=== PATIENT | female | born 1990 | race Caucasian/White ===

== ENCOUNTER 2022-08-31 15:21 | Emergency (ER) | payer SELFPAY ==
[~2022-08-31] VITALS: Ht 175 cm; Wt 121.0 kg
[~2022-08-31 15:21] MED LIST: CEPH500C PO; CLIN300C3 PO; HYDR118S10 PO; NAPR-243 PO; PRD5T PO; RNT150T PO
--- NOTE | 2022-08-31 16:01 | ED General ---
General Chief Complaint: General Problems/Pain Stated Complaint: HANDS CRAMPING Nursing Triage Note: pt has multiple complaints: n/v/d, abdominal pain, headache, and bilateral hand cramping x 2 days. pt's boyfriend has the flu. Source of Information: Patient Exam Limitations: No Limitations History of Present Illness Date Seen by Provider: Aug 31, 2022 Time Seen by Provider: 16:01 Initial Comments This is a tearful 31-year-old female who presented to the clinic for complaints of sore throat, nausea vomiting and abdominal pain, headache for the past 2 days. She started having cramping and contraction of her hands prior to arrival. States that her boyfriend is positive for influenza A and B and concerned she is also positive. She has not taken anything prior to arrival other than Tylenol 3 hours ago. Decreased oral intake. Allergies and Home Medications Allergies Coded Allergies: No Known Drug Allergies (Unverified , 12/12/10) Patient Home Medication List Home Medication List Reviewed: Yes Amoxicillin (Amoxicillin) 500 Mg Capsule, 500 MG PO BID Prescribed by: DARLEEN CASSIDY on 08/31/221722 Naproxen (Naprosyn) 500 Mg Tablet, 1 EACH PO BID PRN Prescribed by: GISSEL KNOX on 03/19/112033 Ondansetron (Ondansetron Odt) 4 Mg Tab.rapdis, 4 MG PO Q6H PRN for NAUSEA/ VOMITING Prescribed by: DARLEEN CASSIDY on 08/31/221722 Ranitidine Hcl (Zantac 150 Mg) 150 Mg Tablet, 1 TAB PO BID Prescribed by: GISSEL KNOX on 03/19/112033 Review of Systems Review of Systems Constitutional: see HPI Past Cafjciu-Gwdfgv-Sfpadk Hx Patient Social History Tobacco Use?: No Substance use?: No Alcohol Use?: No Pt feels they are or have been: No Immunizations Up To Date Influenza Vaccine Up-to-Date: No; Not Current Physical Exam Vital Signs Vital Signs - First Documented 08/31/22 08/31/22 15:28 17:45 Temp 37.8 Pulse 78 Resp 18 B/P (MAP) 139/114 (122) Pulse Ox 97 O2 Delivery Room Air Capillary Refill : Less Than 3 Seconds Height, Weight, BMI Height: '" Weight: lbs. oz. kg; 39.00 BMI Method:Stated General Appearance: No Apparent Distress, Anxious, Other (tearful ) Eyes: Bilateral Eye Normal Inspection, Bilateral Eye PERRL, Bilateral Eye EOMI HEENT: PERRL/EOMI, TMs Normal, Normal ENT Inspection, Pharyngeal Erythema, Other (exudate ) Neck: Full Range of Motion, Normal Inspection Respiratory: Lungs Clear, Normal Breath Sounds, No Accessory Muscle Use, No Respiratory Distress Cardiovascular: Regular Rate, Rhythm, No Murmur Gastrointestinal: Normal Bowel Sounds, Non Tender, Soft Extremity: Normal Capillary Refill, Normal Inspection Neurologic/Psychiatric: Alert, Oriented x3, No Motor/Sensory Deficits, Normal Mood/Affect Skin: Normal Color, Warm/Dry Progress/Results/Core Measures Suspected Sepsis SIRS Temperature: Pulse: Respiratory Rate: 18 Laboratory Tests 08/31/22 15:35: White Blood Count 13.2H Blood Pressure 139 /114 Mean: 122 Laboratory Tests 08/31/22 15:35: Creatinine 0.68, Platelet Count 248, Total Bilirubin 0.6 Results/Orders Lab Results Laboratory Tests Test 08/31/22 15:35 08/31/22 16:05 Range/Units White Blood Count 13.2 H 4.3-11.0 10^3/uL Red Blood Count 4.73 3.80-5.11 10^6/uL Hemoglobin 13.6 11.5-16.0 g/dL Hematocrit 39 35-52 % Mean Corpuscular Volume 83 80-99 fL Mean Corpuscular Hemoglobin 29 25-34 pg Mean Corpuscular Hemoglobin Concent 35 32-36 g/dL Red Cell Distribution Width 14.2 10.0-14.5 % Platelet Count 248 130-400 10^3/uL Mean Platelet Volume 10.3 9.0-12.2 fL Immature Granulocyte % (Auto) 1 % Neutrophils (%) (Auto) 77 H 42-75 % Lymphocytes (%) (Auto) 13 12-44 % Monocytes (%) (Auto) 8 0-12 % Eosinophils (%) (Auto) 0 0-10 % Basophils (%) (Auto) 0 0-10 % Neutrophils # (Auto) 10.2 H 1.8-7.8 10^3/uL Lymphocytes # (Auto) 1.7 1.0-4.0 10^3/uL Monocytes # (Auto) 1.1 H 0.0-1.0 10^3/uL Eosinophils # (Auto) 0.0 0.0-0.3 10^3/uL Basophils # (Auto) 0.1 0.0-0.1 10^3/uL Immature Granulocyte # (Auto) 0.1 0.0-0.1 10^3/uL Sodium Level 137 135-145 MMOL/L Potassium Level 3.5 L 3.6-5.0 MMOL/L Chloride Level 107 98-107 MMOL/L Carbon Dioxide Level 19 L 21-32 MMOL/L Anion Gap 11 5-14 MMOL/L Blood Urea Nitrogen 9 7-18 MG/DL Creatinine 0.68 0.60-1.30 MG/DL Estimat Glomerular Filtration Rate 119 BUN/Creatinine Ratio 13 Glucose Level 94 70-105 MG/DL Calcium Level 9.0 8.5-10.1 MG/DL Corrected Calcium 8.9 8.5-10.1 MG/DL Total Bilirubin 0.6 0.1-1.0 MG/DL Aspartate Amino Transf (AST/SGOT) 19 5-34 U/L Alanine Aminotransferase (ALT/SGPT) 22 0-55 U/L Alkaline Phosphatase 80 40-136 U/L C-Reactive Protein High Sensitivity 9.41 H 0.00-0.50 MG/DL Total Protein 7.3 6.4-8.2 GM/DL Albumin 4.1 3.2-4.5 GM/DL Monoscreen NEGATIVE NEGATIVE Influenza Type A (RT-PCR) Not Detected Not Detecte Influenza Type B (RT-PCR) Not Detected Not Detecte SARS-CoV-2 RNA (RT-PCR) Not Detected Not Detecte Group A Streptococcus Screen NEGATIVE NEGATIVE My Orders Orders - DARLEEN CASSIDY IS PROJECT MANAGER Covid 19 Inhouse Test (08/31/22 15:58) Rapid Strep A Screen (08/31/22 15:58) Influenza A And B By Pcr (08/31/22 15:58) Ketorolac Injection (Toradol Injection) (08/31/22 16:30) Ondansetron Oral Dissolve Tab (Zofran (08/31/22 16:30) Monotest (08/31/22 16:41) Cbc With Automated Diff (08/31/22 16:41) Comprehensive Metabolic Panel (08/31/22 16:41) Hs C Reactive Protein (08/31/22 16:41) Throat Culture (08/31/22 17:25) Medications Given in ED Current Medications Medications Dose Ordered Sig/Marsha Route Start Time Stop Time Status Last Admin Dose Admin Ketorolac Tromethamine 30 mg ONCE ONCE IM 08/31/22 16:30 08/31/22 16:31 DC 08/31/22 16:32 30 MG Ondansetron HCl 4 mg ONCE ONCE PO 08/31/22 16:30 08/31/22 16:31 DC 08/31/22 16:32 4 MG Vital Signs/I&O 08/31/22 08/31/22 15:28 17:45 Temp 37.8 Pulse 78 Resp 18 18 B/P (MAP) 139/114 (122) 111/81 Pulse Ox 97 98 O2 Delivery Room Air Room Air Capillary Refill : Less Than 3 Seconds Blood Pressure Mean: 122 Progress Note : Progress Note Patient examined no acute distress. She was hyperventilating upon arrival and had carpopedal spasms of her bilateral upper extremities. Orders placed for COVID, flu, strep swab. Given Toradol 30 mg IM and Zofran 4 mg ODT, pending results. COVID, flu, rapid strep negative. Given significant exudate of pharynx and elevated temperature we will go ahead and run mono spot, CRP, and basic labs. Labs reviewed has slight elevation of WBC at 13, CRP elevated at 9.41 will obtain throat culture for confirmatory swab. Her mono was negative. Will treat as strep pharyngitis until culture reflexes. Treatment plan reviewed patient and she is agreeable with plan. Return precautions discussed, voiced understanding. Vital signs stable at time of discharge Departure Impression Primary Impression: Pharyngitis Additional Impressions: Carpopedal spasm Hyperventilating Disposition: 01 HOME, SELF-CARE Condition: Improved Departure-Patient Inst. Decision time for Depature: 17:20 Referrals: [facility] [place] (PCP/Family) Primary Care Physician Patient Instructions: Hyperventilation, Strep Throat ED Add. Discharge Instructions: Plan: 1. Take antibiotics twice a day as directed. We have a throat culture pending and will notify you of results. 2. Push fluids, ice and popsicles will help alleviate pain. 3. You can take Tylenol as needed for pain per package. 4. If you have any new, concerning, worsening symptoms return to the emergency department. 5. Take Zofran every 6 hours as needed for nausea and vomiting. All discharge instructions reviewed with patient and/or family. Voiced understanding. Scripts Ondansetron (Ondansetron Odt) 4 Mg Tab.rapdis 4 MG PO Q6H PRN for NAUSEA/VOMITING, #8 TAB 0 Refills Prov: DARLEEN CASSIDY IS PROJECT MANAGER 08/31/22 Amoxicillin (Amoxicillin) 500 Mg Capsule 500 MG PO BID for 10 Days, #21 CAP 0 Refills Prov: DARLEEN CASSIDY IS PROJECT MANAGER 08/31/22 Work/School Note: Work Release Form Date Seen in the Emergency Department: Aug 31, 2022 Return to Work: Sep 04, 2022 Restrictions: No Restrictions DARLEEN CASSIDY IS PROJECT MANAGER Aug 31, 2022 16:01
[2022-08-31] MEDS ORDERED: ONDANSETRON 4 MG (ZOFRAN) ORAL DISSOLVE TAB PO ONE (16:30)
[2022-08-31] MEDS ORDERED: KETOROLAC 30 MG/ML VIAL IM ONE (16:30)
[2022-08-31 16:50] LABS: BASOPHILS # (AUTO) 0.1 10^3/uL (0.0-0.1); BASOPHILS % (AUTO) 0 % (0-10); EOSINOPHILS % (AUTO) 0 % (0-10); HEMATOCRIT 39 % (35-52); HEMOGLOBIN 13.6 g/dL (11.5-16.0); LYMPHOCYTES # (AUTO) 1.7 10^3/uL (1.0-4.0); LYMPHOCYTES % (AUTO) 13 % (12-44); MEAN CORPUSCULAR HEMOGLOBIN 29 pg (25-34); MEAN CORPUSCULAR HGB CONC 35 g/dL (32-36); MEAN CORPUSCULAR VOLUME 83 fL (80-99); MEAN PLATELET VOLUME 10.3 fL (9.0-12.2); MONOCYTES # (AUTO) 1.1 10^3/uL (0.0-1.0); MONOCYTES % (AUTO) 8 % (0-12); NEUTROPHILS # (AUTO) 10.2 10^3/uL (1.8-7.8); NEUTROPHILS % (AUTO) 77 % (42-75); PLATELET COUNT 248 10^3/uL (130-400); WHITE BLOOD COUNT 13.2 10^3/uL (4.3-11.0)
[2022-08-31 16:52] LABS: ALBUMIN 4.1 GM/DL (3.2-4.5); POTASSIUM 3.5 MMOL/L (3.6-5.0)
[2022-08-31 16:55] LABS: TOTAL PROTEIN 7.3 GM/DL (6.4-8.2)
[2022-08-31 16:57] LABS: BILIRUBIN,TOTAL 0.6 MG/DL (0.1-1.0)
[2022-08-31 16:58] LABS: CREATININE SERUM 0.68 MG/DL (0.60-1.30)
[2022-08-31] MEDS ORDERED: AMOX500C2 PO (17:23)
[2022-08-31] MEDS ORDERED: ONDA4TAB11 PO (17:23)
[2022-08-31 17:45] VITALS: BP 111/81
== END 2022-08-31 17:45 | disposition home or self-care (01) ==
LOC: EDUNIT# 15:21 → ER 15:22
DX: J02.9 Acute pharyngitis, unspecified (principal); R06.4 Hyperventilation; R11.2 Nausea with vomiting, unspecified; D72.829 Elevated white blood cell count, unspecified; R79.82 Elevated C-reactive protein (CRP); Z20.822 Contact with and (suspected) exposure to COVID-19
CPT/HCPCS: 36415; 80053; 85025; 86141; 86308; 87070; 87430; 87636